=== PATIENT | male | born 1960 | race Caucasian/White ===

== ENCOUNTER 2020-11-14 00:49 | Emergency (ER) | payer OTHER, SELFPAY ==
[2020-11-14] VITALS (23 sets, daily range): BP systolic 111–168; BP diastolic 60–88; PULSE 58–61; RESP 13–24; TEMP 36.6; O2SAT 93–100; BMI 30.4
--- NOTE | 2020-11-14 00:52 | DI.RAD.S_ITS ---
PROCEDURE: XR CHEST 1V INDICATIONS: chest pain TECHNIQUE: One view of the chest was acquired. COMPARISON: None. FINDINGS: Surgical changes and devices: Cardiac pacer. Lungs and pleura: Scattered subsegmental scarring and/or atelectasis. No acute consolidation. No pleural effusions or pneumothorax. Low lung volumes. Mediastinum: Mediastinal contours appear normal. Heart size is normal. Bones and chest wall: No suspicious bony lesions. Overlying soft tissues appear unremarkable. IMPRESSION: No acute disease. Dictated by: Jacob Walton M.D. on 11/14/2020 at 8:49 Approved by: Jacob Walton M.D. on 11/14/2020 at 8:50
[2020-11-14] MEDS: ASPIRIN 81 MG CHEW TAB 324 MG PO (00:59)
[2020-11-14] MEDS: NITROGLYCERIN 0.4 MG SL TAB SL ×3 (01:01→01:29)
--- NOTE | 2020-11-14 01:04 | ED_ITS ---
HPI - General Adult General Chief complaint: Chest Pain Stated complaint: Chest pain Time Seen by Provider: 11/14/20 00:52 Source: patient Mode of arrival: Ambulatory Limitations: no limitations History of Present Illness HPI narrative: Patient is a 59-year-old male. History of hyperlipidemia and hypertension who also has a DDD pacemaker in place secondary to a prior history of Mobitz type 2 in bradycardia here for evaluation of chest discomfort. Patient states that yesterday afternoon he was at his normal state health when he was on a hike and had to stop because he was having left-sided chest pain that was radiating down his arms. He stated that the pain stopped after he rested for short period of time and was able to finish his hike. He spent the rest the day without any discomfort and then this evening when he woke up at approximately midnight he had the same discomfort only slightly worse. He is also having radiation down into his arms and tingling into his hands. Did not go away with rest. Came to the emergency department because of the symptoms. No shortness of breath afebrile. Has not tried anything for symptoms prior to arrival Related Data Allergies Allergy/AdvReac Type Severity Reaction Status Date / Time No Known Drug Allergies Allergy Verified 11/14/20 00:58 Review of Systems Constitutional Constitutional: Denies headache(s) Eyes Eyes: Reports system reviewed and no additional complaints, except as documented ENT Ears, Nose, Mouth, and Throat: Denies headache(s) Cardiovascular Cardiovascular: Reports chest pain and Denies dyspnea Respiratory Respiratory: Reports system reviewed and no additional complaints, except as documented and Denies dyspnea Gastrointestinal Gastrointestinal: Denies nausea and Denies vomiting Genitourinary Genitourinary: Reports system reviewed and no additional complaints, except as documented Musculoskeletal Musculoskeletal: Reports system reviewed and no additional complaints, except as documented Integumentary/Breasts Skin/Breast: Reports system reviewed and no additional complaints, except as documented Neurologic Neurologic: Reports system reviewed and no additional complaints, except as documented and Denies headache(s) Hematologic/Lymphatic On Anticoagulants: No Allergic/Immunologic Allergic/Immunologic: Reports system reviewed and no additional complaints, except as documented Patient History Medical History Mobitz type 2 second degree atrioventricular block Social History Smoking Status: Never smoker Exam Initial Vital Signs Initial Vital Signs: Vital Signs Temperature 97.8 F 11/14/20 00:52 Pulse Rate 58 L 11/14/20 00:52 Respiratory Rate 24 11/14/20 00:52 Blood Pressure 168/80 H 11/14/20 00:52 Pulse Oximetry 100 11/14/20 00:52 Const General: cooperative and ill appearing Limitations: mental status not altered HENMT Head: normal to inspection and normocephalic Eyes General: appearance normal, both eyes and all related structures Chest Chest: No crepitus and No tenderness Resp Effort & Inspection: normal respiratory effort Auscultation: clear to auscultation bilaterally Cardio Rate: regular rate Rhythm: regular rhythm GI Inspection: non-distended Palpation: soft Skin Lesions: no lesions Other: Diaphoretic Neuro General: patient alert, patient awake and patient oriented x3 Cognition: normal cognition Speech: speech normal Extrem General: normal to inspection, capillary refill normal and No edema Psych Appearance: grossly normal and well kempt Course Orders Ordered: ED Orders 11/14/20 00:52 XR chest 1V Stat EKG-12 Lead Stat 11/14/20 01:01 Complete Blood Count AUTO DIFF Stat Comprehensive Metabolic Panel Stat NT-proBNP (BNP-Adult 18+) Stat Troponin & CK Cardiac Panel Stat 11/14/20 01:06 COVID19 -Nasal swab/Pre-Proc Stat Heparin Sodium/Dextrose (Heparin Drip) 25,000 unit in 500 mls @ 20 mls/hr IV CONT LEONARDO; Protocol Metoprolol Tartrate (Metoprolol Tartrate 5 Mg/5 Ml Inj) 5 mg IV Q5M [facility] Stop: 11/14/20 02:11 Last Admin: 11/14/20 01:57 Dose: 5 mg Documented by: Discontinued Medications Aspirin (Aspirin 81 Mg Chew Tab) 324 mg PO NOW ONE Stop: 11/14/20 00:55 Last Admin: 11/14/20 00:59 Dose: 324 mg Documented by: ISIDRO Clopidogrel Bisulfate (Clopidogrel 75 Mg Tablet) 600 mg PO NOW ONE Stop: 11/14/20 01:55 Heparin Sodium (Porcine) (Heparin 5,000 Unit/Ml Vial) 8,000 unit IV NOW ONE Stop: 11/14/20 01:47 Last Admin: 11/14/20 01:56 Dose: 8,000 unit Documented by: Nitroglycerin (Nitroglycerin 0.4 Mg Sl Tab) 0.4 mg SL [id number] PRN PRN Reason: Chest Pain Last Admin: 11/14/20 01:01 Dose: 0.4 mg Documented by: ISIDRO Vital Signs Vital signs: Vital Signs - 8 hr 11/14/20 00:52 11/14/20 00:54 11/14/20 00:55 Temperature 97.8 F Pulse Rate 58 L 59 L 61 Respiratory Rate 24 21 23 Blood Pressure 168/80 H Pulse Oximetry 100 100 100 11/14/20 01:00 11/14/20 01:01 11/14/20 01:02 Temperature Pulse Rate 61 60 60 Respiratory Rate 13 21 Blood Pressure 161/88 H 161/88 H Pulse Oximetry 100 100 11/14/20 01:05 11/14/20 01:10 11/14/20 01:11 Temperature Pulse Rate 60 60 60 Respiratory Rate 21 20 Blood Pressure 155/85 H 152/81 H 152/81 H Pulse Oximetry 100 98 11/14/20 01:15 11/14/20 01:20 11/14/20 01:25 Temperature Pulse Rate 60 60 60 Respiratory Rate 21 17 16 Blood Pressure 138/77 127/71 128/75 Pulse Oximetry 95 94 95 11/14/20 01:29 11/14/20 01:30 Temperature Pulse Rate 60 60 Respiratory Rate 18 Blood Pressure 128/75 131/76 Pulse Oximetry 97 Medical Decision Making Medical Records Medical records reviewed: Yes I reviewed the patient's medical records. Lab Data Lab results reviewed: Yes I reviewed the patient's lab results. Result diagrams: 11/14/20 01:01 11/14/20 01:01 Labs: Lab Results 11/14/20 11/14/20 11/14/20 Range/Units 01:01 01:01 01:06 WBC 9.2 (4.5-11.0) X10^3/uL RBC 5.58 (4.5-5.9) X10^6/uL Hgb 16.7 (13.5-17.5) g/dL Hct 50.2 (41-53) % MCV 89.9 (80-100) fL MCH 30.0 (26-34) PG MCHC 33.3 (30-36) % RDW 13.8 (11.6-14.8) % Plt Count 145 L (150-400) X10^3/uL Neut % (Auto) 46.2 L (50-75) % Lymph % (Auto) 43.9 H (25-40) % Mower % (Auto) 8.2 (3-14) % Eos % (Auto) 0.9 L (2-4) % Baso % (Auto) 0.8 (0-2) % Neut # (Auto) 4200 (6138-1030) /uL Lymph # (Auto) 4000 (9266-0469) /uL Mower # (Auto) 700 (0-900) /uL Eos # (Auto) 100 (0-450) /uL Baso # (Auto) 100 (0-100) /uL Sodium 140 (137-145) mmol/L Potassium 3.6 (3.4-5.1) mmol/L Chloride 105 (98-107) mmol/L Carbon Dioxide 24 (22-32) mmol/L BUN 30 H (9-20) mg/dL Creatinine 1.26 H (0.66-1.25) mg/dL Estimated GFR 58.6 L (>60) mL/min BUN/Creatinine Ratio 23.8 H (6-22) Glucose 131 H (70-100) mg/dL Calcium 10.2 (8.4-10.2) mg/dL Total Bilirubin 1.4 H (0.2-1.3) mg/dL AST 42 (17-59) IU/L ALT 53 H (<50) IU/L Alkaline Phosphatase 77 (38-126) U/L Total Creatine Kinase 180 H (55-170) U/L CK-MB (CK-2) 5.41 H (<2.37) ng/mL CK-MB (CK-2) Rel Index 3.0 (1.5-5.0) % NT-Pro-B Natriuret Pep 371 H (<125) pg/mL Total Protein 7.6 (6.3-8.2) g/dL Albumin 4.5 (3.5-5.0) g/dL Globulin 3.1 (1.7-4.1) g/dL Albumin/Globulin Ratio 1.5 (1.0-2.8) SARS-CoV-2 (PCR) Negative (Negative) Imaging Data Chest x-ray: Radiologist's Impression: No acute findings ECG Data Attestation: I personally reviewed and interpreted this ECG as follows: Interpretation: AV dual paced with prolonged AV conduction Rate is 61 MDM Narrative Medical decision making narrative: Patient arrived ill-appearing. Was diaphoretic. Is having chest pain. Arrives stating that his pain was a 10/10. Approved to is 6 to 7/10 on its own with just resting in bed. Improved to 3/10 with the 1st nitroglycerin and did no change with 2 subsequent doses. His chest x-ray is unremarkable. Patient does not meet Sgarbossa criteria for AMI however changes in V1 and V2 and V3 are concerning. I did discuss the case with Dr. Poe on-call for Cardiology at [facility] was able to review the EKG and agrees that it was concerning. He stated that if we were unable to get his pain under control or if his troponin was positive that I should discuss the case with Dr. Salvador the STEMI commutator assembler. After 3 nitroglycerin patient's pain was still 3/10. His troponin result is 0.299. I did discuss the case with Dr. Salvador and he also was able to review the EKG and was concerned about a coronary occlusion. Patient was started on heparin at 8000 units per his request. Was then started on a heparin drip. He did receive aspirin upon his arrival. Nitro paste was placed secondary to continued discomfort. He was given labetalol. Was given Plavix. Patient was transferred as a STEMI activation. Emergency physician at [facility] accept patient in transfer. I did discuss the need of the transfer with the patient and family at bedside. He expressed understanding. Patient is currently stable for transfer. Critical Care Time Critical Care Time Critical Care Time: Yes Total Critical Care Time: 35 Attestation: The high probability of a clinically significant, sudden or life threatening deterioration of the cardiovascular system(s) required my full and direct attention, intervention and personal management. The aggregate critical care time was [35] minutes. This time is in addition to time spent performing reported procedures but includes the following: [X] Data Review and interpretation [X] Patient assessment and monitoring of vital signs [X] Documentation [X] Medication orders and management Discharge Plan Departure Patient Disposition: [facility] Clinical Impression: ST elevation (STEMI) myocardial infarction
[2020-11-14 01:12] LABS: Add Manual Diff / Slide Review NO; Basophils Absolute Auto 100 /uL (0-100); Basophils Percent Auto 0.8 % (0-2); Eosinophils Absolute Auto 100 /uL (0-450); Eosinophils Percent Auto 0.9 % (2-4); Hematocrit 50.2 % (41-53); Hemoglobin 16.7 g/dL (13.5-17.5); Lymphocytes Absolute Auto 4000 /uL (1100-4500); Lymphocytes Percent Auto 43.9 % (25-40); Mean Corpuscular HGB Conc 33.3 % (30-36); Mean Corpuscular Volume 89.9 fL (80-100); Monocytes Absolute Auto 700 /uL (0-900); Monocytes Percent Auto 8.2 % (3-14); Neutrophils Absolute Auto 4200 /uL (1500-7000); Neutrophils Percent Auto 46.2 % (50-75); Platelet Count 145 X10^3/uL (150-400); Red Blood Cell Count 5.58 X10^6/uL (4.5-5.9); Red Cell Distribution Width 13.8 % (11.6-14.8); White Blood Cell Count 9.2 X10^3/uL (4.5-11.0)
[2020-11-14 01:19] LABS: Alanine Aminotransferase 53 IU/L (<50); Albumin 4.5 g/dL (3.5-5.0); Albumin Globulin Ratio 1.5 (1.0-2.8); Alkaline Phosphatase 77 U/L (38-126); Aspartate Aminotransferase 42 IU/L (17-59); BUN Creatinine Ratio 23.8 (6-22); Bilirubin Total 1.4 mg/dL (0.2-1.3); Blood Urea Nitrogen 30 mg/dL (9-20); Calcium 10.2 mg/dL (8.4-10.2); Carbon Dioxide 24 mmol/L (22-32); Chloride 105 mmol/L (98-107); Creatine Kinase 180 U/L (55-170); Estimated Glomerular Filt Rate 58.6 mL/min (>60); Globulin 3.1 g/dL (1.7-4.1); Glucose 131 mg/dL (70-100); HEMOLYSIS < 15 (0-50); Potassium 3.6 mmol/L (3.4-5.1); Sodium 140 mmol/L (137-145); Total Protein 7.6 g/dL (6.3-8.2)
[2020-11-14 01:25] LABS: COVID19 -Nasal RAPID Negative (Negative)
[2020-11-14 01:31] LABS: NT-proBNP (BNP-Adult 18+) 371 pg/mL (<125)
[2020-11-14 01:34] LABS: Creatine Kinase MB 5.41 ng/mL (<2.37)
[2020-11-14] MEDS: HEPARIN 5,000 UNIT/ML VIAL 8000 UNIT IV (01:56)
[2020-11-14] MEDS: METOPROLOL TARTRATE 5 MG/5 ML INJ IV ×3 (01:57→02:12)
[2020-11-14] MEDS: HEPARIN DRIP 25,000 UNIT/500 ML IV.SOLN 20 UNIT IV (02:06)
[2020-11-14] MEDS: NITROGLYCERIN OINT 1 INCH/GM OINT...G. 0.5 INCH TOP (02:07)
[2020-11-14 02:12] LABS: Troponin I 0.299 ng/mL (0.01-0.034)
--- NOTE | 2020-11-14 02:38 | PC.NURSE ---
Summary of care: Pt presented in moderate distress c/o 8/10 CP. Improved to 6/10 with rest and to 3/10 after 1 SL NTG. Pain was unresponsive to additional 2 SL NTG. Pt later reported pain increasing to 8/10. Dr Hooker notified, he was speaking to [facility] cardiology for transfer. Pt medicated with nitropaste, heparin bolus followed by drip, and metoprolol IV. [facility] arrived for STEMI transport to [facility]. Care handed off to Mahendra.
== END 2020-11-14 02:19 | disposition short-term general hospital (02) ==
PROVIDERS: Emergency Provider Emergency Medicine
DX: I21.3 ST elevation (STEMI) myocardial infarction of unspecified site (principal); R07.9 Chest pain, unspecified; Z20.822 Contact with and (suspected) exposure to COVID-19; Z95.0 Presence of cardiac pacemaker
CPT/HCPCS: 36415; 71045; 80053; 82550; 82553; 83880; 84484; 85025; 87635; 93005; 93010; 96374; 96375; 99284; 99291; 99292; C9803; J1644

== ENCOUNTER 2021-03-02 08:30 | Outpatient (RCR) | payer OTHER, SELFPAY | END 2021-03-02 10:30 | LOC: CAR 08:30 | PROVIDERS: Referring Provider Internal Medicine Clinical Cardiac Electrophysiology; Visit Provider Internal Medicine Clinical Cardiac Electrophysiology | DX: I21.02 ST elevation (STEMI) myocardial infarction involving left anterior descending coronary artery (principal) | CPT/HCPCS: 93798 ==

== ENCOUNTER 2024-03-26 09:28 | Emergency (ER) | payer OTHER, SELFPAY ==
[2024-03-26] VITALS (12 sets, daily range): BP systolic 93–139; BP diastolic 47–74; PULSE 61–82; RESP 12–17; TEMP 36.4; O2SAT 90–98; BMI 28.8
--- NOTE | 2024-03-26 10:02 | DI.CT.S_ITS ---
PROCEDURE: CT KIDNEY URETER BLADDER (KUB) INDICATIONS: R flank pain TECHNIQUE: Axial sections were acquired from the lung bases to the pubic symphysis. Coronal and sagittal reformats were performed. For radiation dose reduction, the following was used: automated exposure control, adjustment of mA and/or kV according to patient size. COMPARISON: [facility], CT, CT IVP, 11/21/2023, 8:56. FINDINGS: Image quality: Diagnostic. Lower Chest: No significant findings. URINARY: Right Kidney: No obstructive stone within the collecting system but there is mild right-sided hydronephrosis. Right Ureter: Within the proximal right ureter just below the pelvis level is a 6 mm maximal dimension 637 Hounsfield unit calculus causing the hydronephrosis immediately above. This calculus had previously been present within the lower 3rd collecting system of right kidney. Left Kidney: No obstructive stones or hydronephrosis. There is a lower 3rd 2 mm nonobstructive left renal collecting system stone, seen on series 2, image 62. Left Ureter: No hydroureter. Bladder: Normal wall thickness. No stones. ABDOMEN: Liver: No contour-deforming solid mass. Gallbladder: No radiopaque gallstones or wall thickening. Biliary ducts: No biliary dilation. Pancreas: No ductal dilation. Spleen: Size is within normal limits. Adrenal Glands: No adrenal nodules. Stomach and Bowel: Normal colonic caliber, without significant wall thickening. Peritoneum: No abnormal intraperitoneal fluid. No free air. Ventral Wall: No hernia. Abdominal Nodes: No enlarged retroperitoneal or mesenteric lymph nodes. Vessels: Aorta and inferior vena cava are normal in size. PELVIS: Pelvic Organs: Unremarkable. Pelvic Nodes: Unremarkable. Miscellaneous: No inguinal hernias are seen. Bones: Unremarkable. IMPRESSION: 6 mm proximal right ureteral stone produces mild to moderate right-sided hydronephrosis, and appears to have migrated from the lower 3rd right renal collecting system subsequent to the 11/24 CT scanning. Resolution of several larger calculi within the left renal collecting system, with a single 2 mm lower 3rd nonobstructive calculus on the left in the collecting system present. Dictated by: Patricio Loco M.D. on 03/26/2024 at 10:45 Approved by: Patricio Loco M.D. on 03/26/2024 at 10:50
[2024-03-26 10:09] LABS: Add Manual Diff / Slide Review NO; Basophils Absolute Auto 0 /uL (0-100); Basophils Percent Auto 0.5 % (0-2); Eosinophils Absolute Auto 0 /uL (0-450); Eosinophils Percent Auto 0.4 % (2-4); Hematocrit 49.5 % (41-53); Hemoglobin 16.5 g/dL (13.5-17.5); Lymphocytes Absolute Auto 2100 /uL (1100-4500); Lymphocytes Percent Auto 19.8 % (25-40); Mean Corpuscular HGB Conc 33.4 % (30-36); Mean Corpuscular Hemoglobin 30.1 PG (26-34); Mean Corpuscular Volume 90.1 fL (80-100); Monocytes Absolute Auto 700 /uL (0-900); Monocytes Percent Auto 6.2 % (3-14); Neutrophils Absolute Auto 7900 /uL (1500-7000); Neutrophils Percent Auto 73.1 % (50-75); Platelet Count 141 X10^3/uL (150-400); Red Blood Cell Count 5.49 X10^6/uL (4.5-5.9); White Blood Cell Count 10.8 X10^3/uL (4.5-11.0)
[2024-03-26] MEDS: HYDROMORPHONE 0.5 MG INJ IV ×4 (10:09→14:28)
[2024-03-26] MEDS: SODIUM CHLORIDE 0.9% 1,000 ML 1000 ML IV (10:09)
[2024-03-26] MEDS: ONDANSETRON 4 MG/2 ML INJ IV (10:09)
[2024-03-26 10:19] LABS: Alanine Aminotransferase 40 IU/L (<50); Albumin 4.3 g/dL (3.5-5.0); Albumin Globulin Ratio 1.3 (1.0-2.8); Alkaline Phosphatase 88 U/L (38-126); Aspartate Aminotransferase 36 IU/L (17-59); BUN Creatinine Ratio 17.8 (6-22); Bilirubin Total 1.9 mg/dL (0.2-1.3); Blood Urea Nitrogen 19 mg/dL (9-20); Carbon Dioxide 25 mmol/L (22-32); Chloride 106 mmol/L (98-107); Estimated Glomerular Filt Rate > 60 mL/min (>60); Globulin 3.2 g/dL (1.7-4.1); Glucose 116 mg/dL (80-110); HEMOLYSIS 30 (0-50); Potassium 3.8 mmol/L (3.4-5.1); Sodium 137 mmol/L (137-145); Total Protein 7.5 g/dL (6.3-8.2)
--- NOTE | 2024-03-26 12:57 | ED.GENADULT ---
HPI - General Adult General Chief complaint: Urogenital-Male Stated complaint: passing kidney stone Time Seen by Provider: 03/26/24 09:58 Source: patient Mode of arrival: Ambulatory History of Present Illness HPI narrative: 63-year-old gentleman with prior history of kidney stones known 6 mm stone in the right kidney. Recently had lithotripsy has been doing well. Approximately 3 hours prior to arrival began having severe pain on the right side suspected that the right kidney stone has entered the ureter. No fevers, cough, chills. He is having difficulty finding a comfortable position, mildly diaphoretic secondary to pain. Upper right flank pains appreciated. No abdominal pain, no recent vomiting, diarrhea. No chest pain or palpitations Related Data Previous Rx's Medication Instructions Recorded oxycodone-acetaminophen 5 mg-325 1 tab PO Q6H PRN pain #20 tabs 03/26/24 mg tablet Allergies Allergy/AdvReac Type Severity Reaction Status Date / Time No Known Drug Allergies Allergy Verified 03/26/24 09:34 Review of Systems Review of Systems Narrative: Pertinent positive and negative findings as per HPI Patient History Medical History (Updated 03/26/24 @ 15:43 by Stacy Chavez MD) Kidney stones Mobitz type 2 second degree atrioventricular block Social History Smoking Status: Never smoker Smoking Status: Never smoker alcohol intake frequency: holidays/special occasions only Substance Use Type: does not use Exam Initial Vital Signs Initial Vital Signs: Vital Signs Temperature 97.6 F 03/26/24 09:29 Pulse Rate 67 03/26/24 09:29 Respiratory Rate 14 03/26/24 09:29 Blood Pressure 139/74 03/26/24 09:29 Pulse Oximetry 97 03/26/24 09:29 Oxygen Delivery Method Room Air 03/26/24 09:29 General: Acutely uncomfortable unable to find position of comfort. Able to give a complete and coherent history. Well-nourished well-developed HEENT: Moist mucous membranes, normal sclera with reactive pupils, Respiratory: Lungs are clear to auscultation, no wheezing no rales no rhonchi. Full and symmetrical air movement Cardiac: Regular rate and rhythm no murmurs no bruits Abdomen: Soft, nontender, good bowel tones, right flank pain Skin: Warm and dry, no rashes Neurologic: Grossly neurologically intact with no obvious asymmetries or abnormalities Extremities: No trauma, well perfused Psych: Cooperative, appropriate insight and affect Course Orders Ordered: ED Orders 03/26/24 09:45 Complete Blood Count AUTO DIFF Stat Comprehensive Metabolic Panel Stat 03/26/24 10:02 CT kidney ureter bladder (KUB) Stat Urinalysis and Microscopic Stat Hydromorphone HCl (Hydromorphone 0.5 Mg Inj) 0.5 mg IV Q15MIN PRN PRN Reason: Pain, Last Admin: 03/26/24 11:30 Dose: 0.5 mg Documented By: Admin: 03/26/24 10:09 Dose: 0.5 mg Documented By: MILVIA Discontinued Medications Sodium Chloride (Normal Saline 0.9%) 1,000 mls @ 1,000 mls/hr IV BOLUS ONE Stop: 03/26/24 11:00 Last Infusion: 03/26/24 11:49 Dose: Infused Documented By: Admin: 03/26/24 10:09 Dose: 1,000 mls/hr Documented By: MILVIA Ondansetron HCl (Ondansetron 4 Mg/2 Ml Inj) 4 mg IV NOW ONE Stop: 03/26/24 10:02 Last Admin: 03/26/24 10:09 Dose: 4 mg Documented By: MILVIA Vital Signs Vital signs: Vital Signs - 8 hr 03/26/24 09:29 03/26/24 12:10 03/26/24 12:10 Temperature 97.6 F Pulse Rate 67 64 Respiratory Rate 14 Blood Pressure 139/74 114/57 L Pulse Oximetry 97 98 Oxygen Delivery Method Room Air 03/26/24 12:30 03/26/24 12:30 Temperature Pulse Rate 61 Respiratory Rate Blood Pressure 112/55 L Pulse Oximetry 96 Oxygen Delivery Method Medical Decision Making Lab Data 03/26/24 09:45 03/26/24 09:45 Labs: Lab Results 03/26/24 Range/Units 09:45 WBC 10.8 (4.5-11.0) X10^3/uL RBC 5.49 (4.5-5.9) X10^6/uL Hgb 16.5 (13.5-17.5) g/dL Hct 49.5 (41-53) % MCV 90.1 (80-100) fL MCH 30.1 (26-34) PG MCHC 33.4 (30-36) % RDW 14.0 (11.6-14.8) % Plt Count 141 L (150-400) X10^3/uL Neut % (Auto) 73.1 (50-75) % Lymph % (Auto) 19.8 L (25-40) % Daniels % (Auto) 6.2 (3-14) % Eos % (Auto) 0.4 L (2-4) % Baso % (Auto) 0.5 (0-2) % Neut # (Auto) 7900 H (1996-4869) /uL Lymph # (Auto) 2100 (9200-4421) /uL Daniels # (Auto) 700 (0-900) /uL Eos # (Auto) 0 (0-450) /uL Baso # (Auto) 0 (0-100) /uL Sodium 137 (137-145) mmol/L Potassium 3.8 (3.4-5.1) mmol/L Chloride 106 (98-107) mmol/L Carbon Dioxide 25 (22-32) mmol/L BUN 19 (9-20) mg/dL Creatinine 1.07 (0.66-1.25) mg/dL Estimated GFR > 60 (>60) mL/min BUN/Creatinine Ratio 17.8 (6-22) Glucose 116 H (80-110) mg/dL Calcium 10.0 (8.4-10.2) mg/dL Total Bilirubin 1.9 H (0.2-1.3) mg/dL AST 36 (17-59) IU/L ALT 40 (<50) IU/L Alkaline Phosphatase 88 (38-126) U/L Total Protein 7.5 (6.3-8.2) g/dL Albumin 4.3 (3.5-5.0) g/dL Globulin 3.2 (1.7-4.1) g/dL Albumin/Globulin Ratio 1.3 (1.0-2.8) Imaging Data CT scan - abdomen/pelvis: Radiologist's Impression: PROCEDURE: CT KIDNEY URETER BLADDER (KUB) INDICATIONS: R flank pain TECHNIQUE: Axial sections were acquired from the lung bases to the pubic symphysis. Coronal and sagittal reformats were performed. For radiation dose reduction, the following was used: automated exposure control, adjustment of mA and/or kV according to patient size. COMPARISON: [facility], CT, CT IVP, 11/21/2023, 8:56. FINDINGS: Image quality: Diagnostic. Lower Chest: No significant findings. URINARY: Right Kidney: No obstructive stone within the collecting system but there is mild right-sided hydronephrosis. Right Ureter: Within the proximal right ureter just below the pelvis level is a 6 mm maximal dimension 637 Hounsfield unit calculus causing the hydronephrosis immediately above. This calculus had previously been present within the lower 3rd collecting system of right kidney. Left Kidney: No obstructive stones or hydronephrosis. There is a lower 3rd 2 mm nonobstructive left renal collecting system stone, seen on series 2, image 62. Left Ureter: No hydroureter. Bladder: Normal wall thickness. No stones. ABDOMEN: Liver: No contour-deforming solid mass. Gallbladder: No radiopaque gallstones or wall thickening. Biliary ducts: No biliary dilation. Pancreas: No ductal dilation. Spleen: Size is within normal limits. Adrenal Glands: No adrenal nodules. Stomach and Bowel: Normal colonic caliber, without significant wall thickening. Peritoneum: No abnormal intraperitoneal fluid. No free air. Ventral Wall: No hernia. Abdominal Nodes: No enlarged retroperitoneal or mesenteric lymph nodes. Vessels: Aorta and inferior vena cava are normal in size. PELVIS: Pelvic Organs: Unremarkable. Pelvic Nodes: Unremarkable. Miscellaneous: No inguinal hernias are seen. Bones: Unremarkable. IMPRESSION: 6 mm proximal right ureteral stone produces mild to moderate right-sided hydronephrosis, and appears to have migrated from the lower 3rd right renal collecting system subsequent to the 11/24 CT scanning. Resolution of several larger calculi within the left renal collecting system, with a single 2 mm lower 3rd nonobstructive calculus on the left in the collecting system present. Dictated by: Patricio Loco M.D. on 03/26/2024 at 10:45 MDM Narrative Medical decision making narrative: CC: Acute onset right flank pain Complicating co-morbidities: Prior kidney stones with lithotripsy. Was aware of a 6 mm stone that was in his right kidney Data collected from: patient Social determinants of health that may influence the patients condition: Patient's urologist is in [place] Differential considered: Patient's urologist is in [place] Exam documented above, pertinent findings include: Right flank pain no abdominal pain pacing the room in significant pain on arrival Lab Test results independently reviewed as above. Pertinent findings: CBC is unremarkable Chemistries are reassuring. Bilirubin is slightly elevated at 1.9 Imaging studies independently reviewed: CT KUB shows 6 mm kidney stone in the proximal right ureter with moderate right-sided hydronephrosis Treatments: 1 L of fluid, Toradol, repeated doses of Dilaudid Re-evaluations: 223pm patient is re-evaluated. Pain is not adequately controlled. He did take his own tamsulosin this morning. He has had Toradol, fluids, total 3 doses of 0.5 mg of Dilaudid. We will try a full mg to see if were able to get on top of the pain Discussion: 63-year-old gentleman with prior kidney stones prior nephrolithiasis established urologist. Currently on tamsulosin known 6 mm stone that have been in the renal parenchyma that appears to now have migrated to the proximal upper 3rd of the right ureter with obstruction and mild hydronephrosis causing significant pain. With Toradol, fluids and Dilaudid we were able to get the pain under control. At this point he is safe for discharge home he has given a prescription for oxycodone along with instructions on moderate pain control with ibuprofen and Tylenol and stronger pain control with ibuprofen and Percocet. Did recommend that he follow up with his primary urologist regarding this current stone in reviewed reasons to return to the emergency department. At this point with pain adequately controlled, no signs of infection appropriate renal function there was no indication for additional imaging or hospitalization and he is safe for discharge Discharge Plan Departure Patient Disposition: Home Clinical Impression: Kidney stone on right side Instructions: DI for Kidney Stones Activity Restrictions/Additional Instructions: Thank you for coming in today The 6 mm kidney stone that has been up in your right kidney is now in the proximal ureter and this is the cause of your pain. Please do continue the tamsulosin. Using 400 mg of ibuprofen (2 osvh-pwh-cokolau pills) and 1 Tylenol every 6 hours can be very helpful in controlling pain. For severe pain 400 mg of ibuprofen and 1 Percocet can be effective The prescription was transmitted to [facility] in [place] Percocet is a narcotic can be addictive and will cause constipation particularly in setting of kidney stone pain. Please take it with a stool softener You do need to follow up with your primary urologist. If you find that the pain is uncontrollable, you are having fevers or new symptoms Prescriptions: New oxycodone-acetaminophen 5-325 mg tablet 1 tab PO Q6H PRN (Reason: pain) Qty: 20 0RF Stand Alone Forms: Patient Portal/API
[2024-03-26 15:55] LABS: Appearance Urine UA SL CLOUDY; Bilirubin Urine UA 1+ (NEGATIVE); Color Urine UA RED; Glucose Urine UA 3+ g/dL (Negative); Ketones Urine UA 1+ (NEGATIVE); Leukocyte Esterase Urine UA TRACE (NEGATIVE); Nitrite Urine UA POSITIVE (Negative); Occult Blood Urine UA 1+ (Negative); Protein Urine UA 2+ (Negative); Specific Gravity Urine UA 1.015 (1.000-1.035)
[2024-03-26 16:10] LABS: Bacteria Urine Many (>30); Culture Indicated Urine Specimen Cultured; RBC Urine 1-5/HPF (0-5/HPF); Squamous Epithelial Cell Urine 0-1 /HPF (0-5/HPF); Urine Volume 10mL (spun); WBC Urine 5-10/HPF (0-5/HPF)
[2024-03-26 16:12] LABS: Ictotest Urine Positive (Negative)
== END 2024-03-26 15:56 | disposition home or self-care (01) ==
PROVIDERS: Emergency Provider Emergency Medicine
DX: N20.0 Calculus of kidney (principal); Z87.442 Personal history of urinary calculi
CPT/HCPCS: 36415; 74176; 80053; 81001; 85025; 87077; 87086; 87186; 96361; 96374; 96375; 96376; 99284; J1171; J2405

== ENCOUNTER → 2024-03-27 16:26 | Outpatient (CLI) | payer OTHER, SELFPAY ==
[2024-03-27 16:54] LABS: Bacteria Urine Many (>30); RBC Urine 1-5/HPF (0-5/HPF); Squamous Epithelial Cell Urine 1-5 /HPF (0-5/HPF); Urine Volume 10mL (spun); WBC Urine 5-10/HPF (0-5/HPF)
[2024-03-27 16:55] LABS: Culture Indicated Urine Specimen Cultured
== END ==
PROVIDERS: Referring Provider Physician Assistant Medical; Visit Provider Physician Assistant Medical
DX: N20.0 Calculus of kidney (principal); R31.9 Hematuria, unspecified
CPT/HCPCS: 81015; 87077; 87086

== ENCOUNTER 2024-03-27 16:37 | Emergency (ER) | payer OTHER, SELFPAY ==
[2024-03-27] VITALS (7 sets, daily range): BP systolic 97–116; BP diastolic 55–58; PULSE 60–70; RESP 14–20; TEMP 37.1–37.7; O2SAT 92–99; BMI 28.8
--- NOTE | 2024-03-27 17:30 | ED_ITS ---
HPI - Male Genitourinary <Coy Edwards MD - Last Filed: 04/07/24 19:02> General Chief complaint: Urogenital-Male Stated complaint: Fever, Just passed Kidney Stone Time Seen by Provider: 03/27/24 17:12 History of Present Illness HPI Narrative: Patient here for fever and chills. Seen here yesterday for right side 6 mm ureteral stone. Patient has history of lithotripsy in the past. Patient feels the kidney stone is stuck and may need lithotripsy. No nausea or vomiting. Just fever and chills. No urinary complaints. No pain at this time. Related Data Home Medications Medication Instructions Recorded Confirmed empagliflozin 25 mg tablet 12.5 mg PO QAM 03/27/24 03/27/24 (Jardiance) metoprolol succinate 25 mg 25 mg PO BID 03/27/24 03/27/24 tablet,extended release 24 hr sacubitril 97 mg-valsartan 103 mg 1 tab PO BID 03/27/24 03/27/24 tablet (Entresto) sildenafil (pulm.hypertension) 20 20 mg PO TID 03/27/24 03/27/24 mg tablet spironolactone 25 mg tablet 12.5 mg PO DAILY 03/27/24 03/27/24 Previous Rx's Medication Instructions Recorded oxycodone-acetaminophen 5 mg-325 1 tab PO Q6H PRN pain #20 tabs 03/26/24 mg tablet Allergies Allergy/AdvReac Type Severity Reaction Status Date / Time No Known Drug Allergies Allergy Verified 03/27/24 16:08 Review of Systems <Coy Edwards MD - Last Filed: 04/07/24 19:02> Review of Systems Narrative: GENERAL: Positive chills, negative fatigue, malaise, positive fever, sweats. HEENT: negative sinus pain, ear pain, sore throat RESPIRATORY: negative dyspnea, cough CARDIOVASCULAR: negative chest pain, palpitations GASTROINTESTINAL: negative nausea, vomiting, abdominal pain : negative dysuria, frequency, hematuria MUSCULOSKELETAL: negative muscle or bony pain SKIN: negative rash, skin lesions NEUROLOGIC: negative weakness, numbness ROS Unobtainable: All systems reviewed & are unremarkable except as noted in HPI and below Patient History <Coy Edwards MD - Last Filed: 04/07/24 19:02> Medical History Kidney stones Mobitz type 2 second degree atrioventricular block Social History Smoking Status: Never smoker Smoking Status: Never smoker alcohol intake frequency: holidays/special occasions only Substance Use Type: does not use Exam <Coy Edwards MD - Last Filed: 04/07/24 19:02> Narrative Exam Narrative: GENERAL: in no distress, not toxic not dyspneic HEAD: Normocephalic. EYES: Pupils equal round ENT: Mucous membranes moist. NECK: Trachea midline. CARDIOVASCULAR: Regular rate and rhythm RESPIRATORY: Clear to auscultation. Breath sounds equal bilaterally. No wheezes, rales, or rhonchi. GASTROINTESTINAL: Abdomen soft, non-tender, no peritoneal signs bowel sounds are present. No CVA tenderness EXTREMITIES: No gross deformities. BACK: No flank tenderness. NEURO: AOx4. Clear speech SKIN: Warm and dry PSYCH: Not anxious, is cooperative Initial Vital Signs Initial Vital Signs: Vital Signs Temperature 99.7 F H 03/27/24 16:41 Pulse Rate 60 03/27/24 16:41 Respiratory Rate 20 03/27/24 16:41 Blood Pressure 116/57 L 03/27/24 16:41 Pulse Oximetry 99 03/27/24 16:41 Oxygen Delivery Method Room Air 03/27/24 16:41 <Hernesto Grossman MD - Last Filed: 03/27/24 20:36> Initial Vital Signs Initial Vital Signs: Vital Signs Temperature 99.7 F H 03/27/24 16:41 Pulse Rate 60 03/27/24 16:41 Respiratory Rate 20 03/27/24 16:41 Blood Pressure 116/57 L 03/27/24 16:41 Pulse Oximetry 99 03/27/24 16:41 Oxygen Delivery Method Room Air 03/27/24 16:41 <Stacy Chavez MD - Last Filed: 03/28/24 07:50> Initial Vital Signs Initial Vital Signs: Vital Signs Temperature 99.7 F H 03/27/24 16:41 Pulse Rate 60 03/27/24 16:41 Respiratory Rate 20 03/27/24 16:41 Blood Pressure 116/57 L 03/27/24 16:41 Pulse Oximetry 99 03/27/24 16:41 Oxygen Delivery Method Room Air 03/27/24 16:41 Course <Coy Edwards MD - Last Filed: 04/07/24 19:02> Orders Ordered: Discontinued Medications Acetaminophen (Acetaminophen 325 Mg Tablet) 975 mg PO NOW ONE Stop: 03/27/24 18:15 Last Admin: 03/27/24 18:24 Dose: 975 mg Documented By: SPF Cefdinir (Cefdinir 300 Mg Capsule) 300 mg PO NOW ONE Stop: 03/27/24 19:55 Last Admin: 03/27/24 20:00 Dose: 300 mg Documented By: LS Vital Signs Vital signs: Vital Signs - 8 hr 03/27/24 16:41 03/27/24 17:57 03/27/24 17:57 Temperature 99.7 F H Pulse Rate 60 61 Respiratory Rate 20 Blood Pressure 116/57 L 107/58 L Pulse Oximetry 99 95 Oxygen Delivery Method Room Air 03/27/24 18:00 03/27/24 18:00 03/27/24 18:24 Temperature 99.8 F H Pulse Rate 64 Respiratory Rate Blood Pressure 102/55 L Pulse Oximetry 92 Oxygen Delivery Method 03/27/24 18:30 03/27/24 18:30 03/27/24 19:00 Temperature Pulse Rate 63 70 Respiratory Rate Blood Pressure 100/57 L Pulse Oximetry 94 94 Oxygen Delivery Method Room Air Room Air 03/27/24 19:00 03/27/24 19:30 03/27/24 19:30 Temperature 98.7 F Pulse Rate 64 Respiratory Rate 14 18 Blood Pressure 107/55 L 97/56 L Pulse Oximetry 94 Oxygen Delivery Method <Hernesto Grossman MD - Last Filed: 03/27/24 20:36> Orders Ordered: Discontinued Medications Acetaminophen (Acetaminophen 325 Mg Tablet) 975 mg PO NOW ONE Stop: 03/27/24 18:15 Last Admin: 03/27/24 18:24 Dose: 975 mg Documented By: SPF Cefdinir (Cefdinir 300 Mg Capsule) 300 mg PO NOW ONE Stop: 03/27/24 19:55 Last Admin: 03/27/24 20:00 Dose: 300 mg Documented By: LS Vital Signs Vital signs: Vital Signs - 8 hr 03/27/24 16:41 03/27/24 17:57 03/27/24 17:57 Temperature 99.7 F H Pulse Rate 60 61 Respiratory Rate 20 Blood Pressure 116/57 L 107/58 L Pulse Oximetry 99 95 Oxygen Delivery Method Room Air 03/27/24 18:00 03/27/24 18:00 03/27/24 18:24 Temperature 99.8 F H Pulse Rate 64 Respiratory Rate Blood Pressure 102/55 L Pulse Oximetry 92 Oxygen Delivery Method 03/27/24 18:30 03/27/24 18:30 03/27/24 19:00 Temperature Pulse Rate 63 70 Respiratory Rate Blood Pressure 100/57 L Pulse Oximetry 94 94 Oxygen Delivery Method Room Air Room Air 03/27/24 19:00 03/27/24 19:30 03/27/24 19:30 Temperature 98.7 F Pulse Rate 64 Respiratory Rate 14 18 Blood Pressure 107/55 L 97/56 L Pulse Oximetry 94 Oxygen Delivery Method <Stacy Chavez MD - Last Filed: 03/28/24 07:50> Orders Ordered: Discontinued Medications Acetaminophen (Acetaminophen 325 Mg Tablet) 975 mg PO NOW ONE Stop: 03/27/24 18:15 Last Admin: 03/27/24 18:24 Dose: 975 mg Documented By: AMBER Cefdinir (Cefdinir 300 Mg Capsule) 300 mg PO NOW ONE Stop: 03/27/24 19:55 Last Admin: 03/27/24 20:00 Dose: 300 mg Documented By: LS Vital Signs Vital signs: Vital Signs - 8 hr 03/27/24 16:41 03/27/24 17:57 03/27/24 17:57 Temperature 99.7 F H Pulse Rate 60 61 Respiratory Rate 20 Blood Pressure 116/57 L 107/58 L Pulse Oximetry 99 95 Oxygen Delivery Method Room Air 03/27/24 18:00 03/27/24 18:00 03/27/24 18:24 Temperature 99.8 F H Pulse Rate 64 Respiratory Rate Blood Pressure 102/55 L Pulse Oximetry 92 Oxygen Delivery Method 03/27/24 18:30 03/27/24 18:30 03/27/24 19:00 Temperature Pulse Rate 63 70 Respiratory Rate Blood Pressure 100/57 L Pulse Oximetry 94 94 Oxygen Delivery Method Room Air Room Air 03/27/24 19:00 03/27/24 19:30 03/27/24 19:30 Temperature 98.7 F Pulse Rate 64 Respiratory Rate 14 18 Blood Pressure 107/55 L 97/56 L Pulse Oximetry 94 Oxygen Delivery Method MDM - Male Genitourinary <Coy Edwards MD - Last Filed: 04/07/24 19:02> Lab Data 03/27/24 17:40 03/27/24 17:40 Labs: Lab Results 03/27/24 Range/Units 17:40 WBC 12.6 H (4.5-11.0) X10^3/uL RBC 4.91 (4.5-5.9) X10^6/uL Hgb 14.6 (13.5-17.5) g/dL Hct 44.2 (41-53) % MCV 89.8 (80-100) fL MCH 29.8 (26-34) PG MCHC 33.1 (30-36) % RDW 14.2 (11.6-14.8) % Plt Count 96 L (150-400) X10^3/uL Neut % (Auto) 84.8 H (50-75) % Lymph % (Auto) 6.4 L (25-40) % Randolph % (Auto) 8.2 (3-14) % Eos % (Auto) 0.2 L (2-4) % Baso % (Auto) 0.4 (0-2) % Neut # (Auto) 85526 H (2040-7221) /uL Lymph # (Auto) 800 L (9269-1209) /uL Randolph # (Auto) 1000 H (0-900) /uL Eos # (Auto) 0 (0-450) /uL Baso # (Auto) 0 (0-100) /uL Sodium 135 L (137-145) mmol/L Potassium 4.1 (3.4-5.1) mmol/L Chloride 104 (98-107) mmol/L Carbon Dioxide 26 (22-32) mmol/L BUN 30 H (9-20) mg/dL Creatinine 1.64 H (0.66-1.25) mg/dL Estimated GFR 47 L (>60) mL/min BUN/Creatinine Ratio 18.3 (6-22) Glucose 119 H (80-110) mg/dL Lactate 1.0 (0.7-2.1) mmol/L Calcium 9.0 (8.4-10.2) mg/dL Total Bilirubin 3.9 H (0.2-1.3) mg/dL AST 28 (17-59) IU/L ALT 34 (<50) IU/L Alkaline Phosphatase 73 (38-126) U/L Total Protein 6.6 (6.3-8.2) g/dL Albumin 3.7 (3.5-5.0) g/dL Globulin 2.9 (1.7-4.1) g/dL Albumin/Globulin Ratio 1.3 (1.0-2.8) Procalcitonin 8.64 H (<0.5) ng/mL [facility] Narrative Medical decision making narrative: Patient here for fever and chills. Seen here yesterday for right side 6 mm ureteral stone. Patient has history of lithotripsy in the past. Patient feels the kidney stone is stuck and may need lithotripsy. No nausea or vomiting. Just fever and chills. No urinary complaints. No pain at this time. After history and exam CBC CMP lactic acid procalcitonin CT abdomen pelvis [facility] Medical records reviewed: Records from yesterday for ER visit Differential considered: Includes but not limited to pyelonephritis infected kidney stone ureteral stone Lab Test results independently reviewed as above. Pertinent findings: Imaging studies independently reviewed: CT abdomen pelvis Consultations: Treatments: Re-evaluations: Discussion: Diagnosis: March 27, 2024 at 6:[address] Edwards: Sign out to Dr. Grossman, laboratory studies imaging studies are pending. May need to consult Urology Services with results. <Hernesto Grossman MD - Last Filed: 03/27/24 20:36> Lab Data Attestation: I reviewed the patient's lab results. Labs: Lab Results 03/27/24 Range/Units 17:40 WBC 12.6 H (4.5-11.0) X10^3/uL RBC 4.91 (4.5-5.9) X10^6/uL Hgb 14.6 (13.5-17.5) g/dL Hct 44.2 (41-53) % MCV 89.8 (80-100) fL MCH 29.8 (26-34) PG MCHC 33.1 (30-36) % RDW 14.2 (11.6-14.8) % Plt Count 96 L (150-400) X10^3/uL Neut % (Auto) 84.8 H (50-75) % Lymph % (Auto) 6.4 L (25-40) % Randolph % (Auto) 8.2 (3-14) % Eos % (Auto) 0.2 L (2-4) % Baso % (Auto) 0.4 (0-2) % Neut # (Auto) 31674 H (5751-9161) /uL Lymph # (Auto) 800 L (0261-4026) /uL Randolph # (Auto) 1000 H (0-900) /uL Eos # (Auto) 0 (0-450) /uL Baso # (Auto) 0 (0-100) /uL Sodium 135 L (137-145) mmol/L Potassium 4.1 (3.4-5.1) mmol/L Chloride 104 (98-107) mmol/L Carbon Dioxide 26 (22-32) mmol/L BUN 30 H (9-20) mg/dL Creatinine 1.64 H (0.66-1.25) mg/dL Estimated GFR 47 L (>60) mL/min BUN/Creatinine Ratio 18.3 (6-22) Glucose 119 H (80-110) mg/dL Lactate 1.0 (0.7-2.1) mmol/L Calcium 9.0 (8.4-10.2) mg/dL Total Bilirubin 3.9 H (0.2-1.3) mg/dL AST 28 (17-59) IU/L ALT 34 (<50) IU/L Alkaline Phosphatase 73 (38-126) U/L Total Protein 6.6 (6.3-8.2) g/dL Albumin 3.7 (3.5-5.0) g/dL Globulin 2.9 (1.7-4.1) g/dL Albumin/Globulin Ratio 1.3 (1.0-2.8) Procalcitonin 8.64 H (<0.5) ng/mL MDM Narrative Medical decision making narrative: Patient here for fever and chills. Seen here yesterday for right side 6 mm ureteral stone. Patient has history of lithotripsy in the past. Patient feels the kidney stone is stuck and may need lithotripsy. No nausea or vomiting. Just fever and chills. No urinary complaints. No pain at this time. After history and exam CBC CMP lactic acid procalcitonin CT abdomen pelvis [facility] Medical records reviewed: Records from yesterday for ER visit Differential considered: Includes but not limited to pyelonephritis infected kidney stone ureteral stone Lab Test results independently reviewed as above. Pertinent findings: Imaging studies independently reviewed: CT abdomen pelvis Consultations: Treatments: Re-evaluations: Discussion: Diagnosis: March 27, 2024 at 6:[address] Edwards: Sign out to Dr. Grossman, laboratory studies imaging studies are pending. May need to consult Urology Services with results. 03/27/2024, 6:00 p.m., Chauncey. Sign-out from Dr. Edwards. Patient seen here yesterday with right-sided flank pain, diagnosed by CT with 6 mm ureteral stone, history of prior lithotripsy followed by [facility] urologist, discharged home, today returns feeling feverish, had increased right flank pain then decreased, no fever on triage vital signs. White blood cell count [id number], other labs pending. Repeat CT abdomen and pelvis pending. Patient thinks he might have passed his recent right ureteral stone. Referred for further evaluation from [facility] urgent care. Assumed interim care. CT abdomen and pelvis now shows previous 6 mm proximal stone now into the renal pelvis, no longer obstructing, there is extensive perinephric stranding involving the right perinephric bed. The right kidney is edematous. There are bilateral nonobstructing kidney stones present. See radiology report. Copy of report given to patient, who believes he had a previous 6 mm right-sided stone within the kidney, believes he might have passed it today. No urinalysis from ED visit now. Urinalysis was sent this afternoon 2h ago from [facility] urgent [facility], showed blood and bacteria, urine culture indicated and is pending. We will give oral dose cefdinir, and prescription for 10 day course to his pharmacy. Follow up with Urology advised, he has urologist in the [facility], also gave contacts for local [facility] urologists since he lives up in the [facility]. Copy of CT report given to patient. DC home with family <Stacy Chavez MD - Last Filed: 03/28/24 07:50> Lab Data Labs: Lab Results 03/27/24 Range/Units 17:40 WBC 12.6 H (4.5-11.0) X10^3/uL RBC 4.91 (4.5-5.9) X10^6/uL Hgb 14.6 (13.5-17.5) g/dL Hct 44.2 (41-53) % MCV 89.8 (80-100) fL MCH 29.8 (26-34) PG MCHC 33.1 (30-36) % RDW 14.2 (11.6-14.8) % Plt Count 96 L (150-400) X10^3/uL Neut % (Auto) 84.8 H (50-75) % Lymph % (Auto) 6.4 L (25-40) % Randolph % (Auto) 8.2 (3-14) % Eos % (Auto) 0.2 L (2-4) % Baso % (Auto) 0.4 (0-2) % Neut # (Auto) 17747 H (9487-5440) /uL Lymph # (Auto) 800 L (7615-6369) /uL Randolph # (Auto) 1000 H (0-900) /uL Eos # (Auto) 0 (0-450) /uL Baso # (Auto) 0 (0-100) /uL Sodium 135 L (137-145) mmol/L Potassium 4.1 (3.4-5.1) mmol/L Chloride 104 (98-107) mmol/L Carbon Dioxide 26 (22-32) mmol/L BUN 30 H (9-20) mg/dL Creatinine 1.64 H (0.66-1.25) mg/dL Estimated GFR 47 L (>60) mL/min BUN/Creatinine Ratio 18.3 (6-22) Glucose 119 H (80-110) mg/dL Lactate 1.0 (0.7-2.1) mmol/L Calcium 9.0 (8.4-10.2) mg/dL Total Bilirubin 3.9 H (0.2-1.3) mg/dL AST 28 (17-59) IU/L ALT 34 (<50) IU/L Alkaline Phosphatase 73 (38-126) U/L Total Protein 6.6 (6.3-8.2) g/dL Albumin 3.7 (3.5-5.0) g/dL Globulin 2.9 (1.7-4.1) g/dL Albumin/Globulin Ratio 1.3 (1.0-2.8) Procalcitonin 8.64 H (<0.5) ng/mL Imaging Data CT scan - abdomen/pelvis: Radiologist's Impression: PROCEDURE: CT KIDNEY URETER BLADDER (KUB) INDICATIONS: Flank pain TECHNIQUE: Axial sections were acquired from the lung bases to the pubic symphysis. Coronal and sagittal reformats were performed. For radiation dose reduction, the following was used: automated exposure control, adjustment of mA and/or kV according to patient size. COMPARISON: [facility], CT, CT KIDNEY URETER BLADDER (KUB), 03/26/2024, 10:07. FINDINGS: Image quality: Diagnostic. Lower Chest: Pacemaker. Minimal patchy bibasilar atelectasis. URINARY: Right Kidney: Extensive perinephric stranding is present. Previous right hydronephrosis is no longer present. The 6 mm stone which was previously at the UPJ/proximal right ureter has moved in a retrograde fashion so that it is floating within the right renal pelvis. Again noted is a punctate nonobstructing lower pole stone. The right kidney is edematous. Right Ureter: No hydroureter. Left Kidney: Multiple nonobstructing small stones again noted. No hydronephrosis. Left Ureter: No hydroureter. Bladder: Normal wall thickness. No stones. ABDOMEN: Liver: No contour-deforming solid mass. Gallbladder: No radiopaque gallstones or wall thickening. Biliary ducts: No biliary dilation. Pancreas: No ductal dilation. Spleen: Size is within normal limits. Adrenal Glands: No adrenal nodules. Stomach and Bowel: Normal colonic caliber, without significant wall thickening. Peritoneum: No abnormal intraperitoneal fluid. No free air. Ventral Wall: No hernia. Abdominal Nodes: No enlarged retroperitoneal or mesenteric lymph nodes. Vessels: Aorta and inferior vena cava are normal in size. PELVIS: Pelvic Organs: Unremarkable. Pelvic Nodes: Unremarkable. Miscellaneous: Bilateral small fat containing inguinal hernias are seen. Bones: A ewlq-ba-denthdej central posterior disc protrusion is incidentally noted at L4-L5. IMPRESSION: 1. The previous obstructing 6 mm proximal right stone has retracted back into the renal pelvis and is no longer obstructing. There is extensive perinephric stranding involving the right perinephric bed. The right kidney is edematous. 2. Bilateral nonobstructing renal stones. 3. Development of mild patchy bibasilar atelectasis. 4. Note made of a central posterior disc protrusion at L4-L5. 5. Pacemaker. Dictated by: Mihir Rainey M.D. on 03/27/2024 at 18:07 [facility] Narrative Medical decision making narrative: Patient here for fever and chills. Seen here yesterday for right side 6 mm ureteral stone. Patient has history of lithotripsy in the past. Patient feels the kidney stone is stuck and may need lithotripsy. No nausea or vomiting. Just fever and chills. No urinary complaints. No pain at this time. After history and exam CBC CMP lactic acid procalcitonin CT abdomen pelvis [facility] Medical records reviewed: Records from yesterday for ER visit Differential considered: Includes but not limited to pyelonephritis infected kidney stone ureteral stone Lab Test results independently reviewed as above. Pertinent findings: Imaging studies independently reviewed: CT abdomen pelvis Treatments: Patient was started on oral cefdinir March 27, 2024 at 6:[address] Edwards: Sign out to Dr. Grossman, laboratory studies imaging studies are pending. May need to consult Urology Services with results. 03/27/2024, 6:00 p.m.Chauncey. Sign-out from Dr. Edwards. Patient seen here yesterday with right-sided flank pain, diagnosed by CT with 6 mm ureteral stone, history of prior lithotripsy followed by [facility] urologist, discharged home, today returns feeling feverish, had increased right flank pain then decreased, no fever on triage vital signs. White blood cell count [id number], other labs pending. Repeat CT abdomen and pelvis pending. Patient thinks he might have passed his recent right ureteral stone. Referred for further evaluation from [facility]. Assumed interim care. CT abdomen and pelvis now shows previous 6 mm proximal stone now into the renal pelvis, no longer obstructing, there is extensive perinephric stranding involving the right perinephric bed. The right kidney is edematous. There are bilateral nonobstructing kidney stones present. See radiology report. Copy of report given to patient, who believes he had a previous 6 mm right-sided stone within the kidney, believes he might have passed it today. No urinalysis from ED visit now. Urinalysis was sent this afternoon 2h ago from [facility], showed blood and bacteria, urine culture indicated and is pending. We will give oral dose cefdinir, and prescription for 10 day course to his pharmacy. Follow up with Urology advised, he has urologist in the [facility] area, also gave contacts for local [facility] urologists since he lives up in the [facility]. Copy of CT report given to patient. [place] home with family 03/[address] Chavez. Urine culture from the returns positive for greater than 100,000 CFU E coli sensitive to cephalosporins. Phone call to the patient. He states that last night he did have chills and a fever. He took a 1000 mg of Tylenol and when he woke up this morning he is feeling significantly better. He is having no flank pain. Temperature this morning is 97.5. Reviewed CT scan showing proximal obstructing stone on the and repeat CT scan on showing the 6 mm stone that appears to have move back up into the renal pelvis and is not currently obstructing. We discussed the fact that a kidney infection with ureteral obstruction is a surgical emergency and needs a stent placed. Based on the CT scan done yesterday it does not appear to be obstructed. The cefdinir that he is on is appropriate based on the culture. The patient is quite interested in being scheduled for lithotripsy to get rid of this larger stone which is entirely appropriate. At this point I recommended that he continue the cefdinir, if he has severe recurrent flank pain, recurrent fevers, chills, nausea, confusion, weakness he needs to come in for further evaluation with concerns for the stone again causing obstruction. Patient understands. He will be contacting our local urologist on Saturday and has contact information from yesterday's ER visit as well as his [facility] in [place] to see who has the earliest follow up appointment to discuss definitive treatment of this 6 mm, now nonobstructing stone in the setting of positive E coli cultures. Questions are answered, we will continue with current treatment and, again he is aware of clinical symptoms that would necessitate urgent return to the emergency department Discharge Plan Departure Patient Disposition: Home Clinical Impression: Bilateral kidney stones, Acute right flank pain Activity Restrictions/Additional Instructions: History of prior kidney stones, prior lithotripsy, recent diagnosis right-sided 6 mm kidney stone, symptoms increased this evening and then improved. No fever on triage. CT scan done tonight, shows no stone within ureter, but does show stones within the right and the left kidney nonobstructing at this time. Radiology report suggests the stone moved cephalad into the kidney, though this clinically seems unlikely, by your report you believe you had a previous right- sided kidney stone 6 mm, and by symptoms might have recently passed it. In either case there is not currently any documented stone within the right ureter. Urinalysis done from clinic this afternoon showed red cells and bacteria, urine culture requested. We will start antibiotics, 1st antibiotic in the emergency department oral cefdinir, prescription sent for 10 day course to your pharmacy. Take antibiotics as prescribed. Follow up with your urologist in [place] early next week regarding possible elective lithotripsy removal of bilateral kidney stones. Return earlier to this/nearest emergency department for any change worsening symptoms or any concerns prior Local urology contact clinic information also provided, if you should like to be managed locally for urology problems in the [facility] Prescriptions: No Action spironolactone 25 mg tablet 12.5 mg PO DAILY sildenafil (pulm.hypertension) 20 mg tablet 20 mg PO TID Rx Instructions: administer doses at least 4-6 hours apart metoprolol succinate 25 mg tablet extended release 24 hr 25 mg PO BID Entresto 97-103 mg tablet 1 tab PO BID Jardiance 25 mg tablet 12.5 mg PO QAM oxycodone-acetaminophen 5-325 mg tablet 1 tab PO Q6H PRN (Reason: pain) Qty: 20 0RF Referrals: Sebas Nash DO [Physician] - Miscellaneous,MD Srinivas [Primary Care Provider] - Coy Gonzales MD [Physician] - Stand Alone Forms: Patient Portal/API
[2024-03-27 17:48] LABS: Add Manual Diff / Slide Review NO; Basophils Absolute Auto 0 /uL (0-100); Basophils Percent Auto 0.4 % (0-2); Eosinophils Absolute Auto 0 /uL (0-450); Eosinophils Percent Auto 0.2 % (2-4); Hematocrit 44.2 % (41-53); Hemoglobin 14.6 g/dL (13.5-17.5); Lymphocytes Absolute Auto 800 /uL (1100-4500); Lymphocytes Percent Auto 6.4 % (25-40); Mean Corpuscular HGB Conc 33.1 % (30-36); Mean Corpuscular Hemoglobin 29.8 PG (26-34); Mean Corpuscular Volume 89.8 fL (80-100); Monocytes Absolute Auto 1000 /uL (0-900); Monocytes Percent Auto 8.2 % (3-14); Neutrophils Absolute Auto 10600 /uL (1500-7000); Neutrophils Percent Auto 84.8 % (50-75); Platelet Count 96 X10^3/uL (150-400); Red Blood Cell Count 4.91 X10^6/uL (4.5-5.9); Red Cell Distribution Width 14.2 % (11.6-14.8); White Blood Cell Count 12.6 X10^3/uL (4.5-11.0)
--- NOTE | 2024-03-27 18:00 | PC.NURSE ---
Addendum entered by Kelvin Lang R.N. 03/27/24 18:36: Pt reports history of e.coli in his urine and had been treated with abx keflex. States he feels the same today. Original Note: Pt denies pain currently. Reports he believes his kidney stone (5mm) may have migrated to his bladder. He today feels feverish. repeat temperature 99.8 oral. Requested tylenol, provider notified and new orders placed.
[2024-03-27 18:05] LABS: Alanine Aminotransferase 34 IU/L (<50); Albumin 3.7 g/dL (3.5-5.0); Albumin Globulin Ratio 1.3 (1.0-2.8); Alkaline Phosphatase 73 U/L (38-126); Aspartate Aminotransferase 28 IU/L (17-59); BUN Creatinine Ratio 18.3 (6-22); Bilirubin Total 3.9 mg/dL (0.2-1.3); Blood Urea Nitrogen 30 mg/dL (9-20); Carbon Dioxide 26 mmol/L (22-32); Chloride 104 mmol/L (98-107); Estimated Glomerular Filt Rate 47 mL/min (>60); Globulin 2.9 g/dL (1.7-4.1); Glucose 119 mg/dL (80-110); HEMOLYSIS 17 (0-50); Potassium 4.1 mmol/L (3.4-5.1); Sodium 135 mmol/L (137-145); Total Protein 6.6 g/dL (6.3-8.2)
[2024-03-27 18:22] LABS: Procalcitonin 8.64 ng/mL (<0.5)
[2024-03-27] MEDS: ACETAMINOPHEN 325 MG TABLET 975 MG PO (18:24)
--- NOTE | 2024-03-27 19:07 | PC.NURSE ---
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 No complaints verbalized at this time. No distress noted. Pt remains connected to vs monitors with alarms on and audible. Call light within reach.
[2024-03-27] MEDS: CEFDINIR 300 MG CAPSULE PO (20:00)
== END 2024-03-27 20:12 | disposition home or self-care (01) ==
PROVIDERS: Emergency Medicine; Emergency Provider Emergency Medicine
DX: N20.0 Calculus of kidney (principal); R10.9 Unspecified abdominal pain; R31.9 Hematuria, unspecified
CPT/HCPCS: 36415; 74176; 80053; 81015; 83605; 84145; 85025; 87077; 87086; 99283; 99284

== ENCOUNTER 2024-05-22 07:45 | Emergency (ER) | payer OTHER, SELFPAY ==
[2024-05-22] VITALS (25 sets, daily range): BP systolic 99–147; BP diastolic 66–90; PULSE 60–73; RESP 13–22; TEMP 36.7–36.9; O2SAT 92–98; BMI 28.5
--- NOTE | 2024-05-22 07:51 | ED_ITS ---
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 He had no associated diaphoresis, heart palpitations, dyspnea, syncope, near-syncope, nausea, vomiting. No radiation of pain to the jaw or neck or scapula or back. No recent new activities. 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 History of coronary artery disease, status post LAD stents x2 [address] [facility]. Follow up by Cardiology Dr. Rendon of [facility], sees that provider at [facility], noted to have atrial fibrillation diagnosis last month, now on Pradaxa oral anticoagulation for the last 3 months, took dose this morning, denies recent missed doses. He can not recall the date of his last stress test, likely more than 2 years. Related Data Home Medications Medication Instructions Recorded Confirmed empagliflozin 25 mg tablet 12.5 mg PO QAM 03/27/24 05/22/24 (Jardiance) metoprolol succinate 25 mg 25 mg PO BID 03/27/24 05/22/24 tablet,extended release 24 hr sacubitril 97 mg-valsartan 103 mg 1 tab PO BID 03/27/24 05/22/24 tablet (Entresto) sildenafil (pulm.hypertension) 20 20 mg PO TID 03/27/24 05/22/24 mg tablet spironolactone 25 mg tablet 12.5 mg PO DAILY 03/27/24 05/22/24 Previous Rx's Medication Instructions Recorded oxycodone-acetaminophen 5 mg-325 1 tab PO Q6H PRN pain #20 tabs 03/26/24 mg tablet isosorbide mononitrate 30 mg 30 mg PO DAILY #30 tabs 05/22/24 tablet,extended release 24 hr Allergies Allergy/AdvReac Type Severity Reaction Status Date / Time No Known Drug Allergies Allergy Verified 03/27/24 16:08 Patient History Medical History Kidney stones Mobitz type 2 second degree atrioventricular block Social History Smoking Status: Never smoker Smoking Status: Never smoker alcohol intake frequency: holidays/special occasions only Exam Narrative Exam Narrative: GENERAL: Well-developed patient, in mild distress. HEAD: Atraumatic. Normocephalic. EYES: Pupils equal round and reactive. Extraocular motions intact. No scleral icterus. No injection or drainage. ENT: Nose without bleeding, purulent drainage. Throat without erythema, tonsillar hypertrophy or exudate. Airway patent. NECK: Trachea midline. Non tender CARDIOVASCULAR: Regular rate and rhythm without murmurs, gallops, or rubs. RESPIRATORY: Clear to auscultation. Breath sounds equal bilaterally. No wheezes, rales, or rhonchi. Left upper anterior pacemaker palpable, site without redness or tenderness. GASTROINTESTINAL: Abdomen soft, non-tender, nondistended. EXTREMITIES: No edema or joint tenderness. BACK: Nontender without deformity or crepitance. No flank tenderness. NEURO: AOx3. Motor functions grossly nonfocal SKIN: No rash or erythema of visible areas Initial Vital Signs Initial Vital Signs: Vital Signs Pulse Rate 73 05/22/24 07:50 Blood Pressure 147/89 H 05/22/24 07:50 Pulse Oximetry 98 05/22/24 07:50 Course Orders Ordered: Discontinued Medications Sodium Chloride (Normal Saline 0.9%) 1,000 mls @ 1,000 mls/hr IV BOLUS ONE Stop: 05/22/24 12:12 Last Infusion: 05/22/24 12:29 Dose: Infused Documented By: Admin: 05/22/24 11:18 Dose: 1,000 mls/hr Documented By: CASSIA Vital Signs Vital signs: Vital Signs - 8 hr 05/22/24 11:30 05/22/24 11:30 05/22/24 12:00 Temperature Pulse Rate 66 Respiratory Rate Blood Pressure 128/72 112/74 Pulse Oximetry 97 Oxygen Delivery Method Room Air 05/22/24 12:00 05/22/24 12:30 05/22/24 12:30 Temperature Pulse Rate 68 65 Respiratory Rate 21 20 Blood Pressure 110/76 Pulse Oximetry 96 96 Oxygen Delivery Method 05/22/24 13:00 05/22/24 13:00 05/22/24 13:30 Temperature Pulse Rate 69 66 Respiratory Rate 20 Blood Pressure 121/76 Pulse Oximetry 96 98 Oxygen Delivery Method 05/22/24 14:00 05/22/24 14:30 05/22/24 14:30 Temperature Pulse Rate 66 66 Respiratory Rate 16 21 Blood Pressure 115/76 Pulse Oximetry 95 96 Oxygen Delivery Method 05/22/24 15:00 05/22/24 15:00 05/22/24 15:30 Temperature Pulse Rate 66 66 Respiratory Rate 21 21 Blood Pressure 123/73 Pulse Oximetry 95 92 Oxygen Delivery Method 05/22/24 15:30 05/22/24 16:00 05/22/24 16:00 Temperature Pulse Rate 60 Respiratory Rate 22 Blood Pressure 115/72 118/70 Pulse Oximetry 95 Oxygen Delivery Method 05/22/24 16:30 05/22/24 16:30 05/22/24 17:00 Temperature Pulse Rate 66 66 Respiratory Rate 19 Blood Pressure 119/76 Pulse Oximetry 96 95 Oxygen Delivery Method 05/22/24 17:00 05/22/24 17:30 05/22/24 17:30 Temperature Pulse Rate 66 Respiratory Rate 20 Blood Pressure 117/69 122/72 Pulse Oximetry 96 Oxygen Delivery Method 05/22/24 17:58 Temperature 98.1 F Pulse Rate Respiratory Rate 19 Blood Pressure Pulse Oximetry Oxygen Delivery Method MDM - Chest Pain Lab Data Attestation: I reviewed the patient's lab results. Lab results narrative: White blood cell count 36612, hemoglobin 16.6, platelets adequate. Basic metabolic panel unremarkable. Total CPK 5536, troponin 0.072 measurable. 05/22/24 07:56 05/22/24 07:56 Labs: Lab Results 05/22/24 05/22/24 05/22/24 Range/Units 07:56 10:00 12:10 WBC 10.1 (4.5-11.0) X10^3/uL RBC 5.59 (4.5-5.9) X10^6/uL Hgb 16.6 (13.5-17.5) g/dL Hct 50.4 (41-53) % MCV 90.0 (80-100) fL MCH 29.6 (26-34) PG MCHC 32.9 (30-36) % RDW 14.6 (11.6-14.8) % Plt Count 108 L (150-400) X10^3/uL Neut % (Auto) 70.5 (50-75) % Lymph % (Auto) 20.8 L (25-40) % [place] % (Auto) 6.7 (3-14) % Eos % (Auto) 1.4 L (2-4) % Baso % (Auto) 0.6 (0-2) % Neut # (Auto) 7100 H (5353-4467) /uL Lymph # (Auto) 2100 (3239-1715) /uL [place] # (Auto) 700 (0-900) /uL Eos # (Auto) 100 (0-450) /uL Baso # (Auto) 100 (0-100) /uL PT 12.7 H (9.4-12.5) SECONDS INR 1.1 (0.9-1.3) APTT 42 H (25.1-36.5) SECONDS Sodium 139 (137-145) mmol/L Potassium 4.1 (3.4-5.1) mmol/L Chloride 106 (98-107) mmol/L Carbon Dioxide 25 (22-32) mmol/L BUN 22 H (9-20) mg/dL Creatinine 1.18 (0.66-1.25) mg/dL Estimated GFR > 60 (>60) mL/min BUN/Creatinine Ratio 18.6 (6-22) Glucose 96 (80-110) mg/dL Calcium 9.9 (8.4-10.2) mg/dL Magnesium 2.1 (1.6-2.3) mg/dL Total Bilirubin 1.8 H (0.2-1.3) mg/dL AST 115 H (17-59) IU/L ALT 65 H (<50) IU/L Alkaline Phosphatase 85 (38-126) U/L Total Creatine Kinase 5536 H 4531 H (55-170) U/L Troponin I 0.072 H 0.079 H 0.091 H (0.01-0.034) ng/mL NT-Pro-B Natriuret Pep 485 H (<125) pg/mL Total Protein 7.7 (6.3-8.2) g/dL Albumin 4.5 (3.5-5.0) g/dL Globulin 3.2 (1.7-4.1) g/dL Albumin/Globulin Ratio 1.4 (1.0-2.8) Lipase 66 (23-300) U/L 05/22/ Range/Units 15:00 WBC (4.5-11.0) X10^3/uL RBC (4.5-5.9) X10^6/uL Hgb (13.5-17.5) g/dL Hct (41-53) % MCV (80-100) fL MCH (26-34) PG MCHC (30-36) % RDW (11.6-14.8) % Plt Count (150-400) X10^3/uL Neut % (Auto) (50-75) % Lymph % (Auto) (25-40) % [place] % (Auto) (3-14) % Eos % (Auto) (2-4) % Baso % (Auto) (0-2) % Neut # (Auto) (9259-4410) /uL Lymph # (Auto) (0371-2397) /uL [place] # (Auto) (0-900) /uL Eos # (Auto) (0-450) /uL Baso # (Auto) (0-100) /uL PT (9.4-12.5) SECONDS INR (0.9-1.3) APTT (25.1-36.5) SECONDS Sodium (137-145) mmol/L Potassium (3.4-5.1) mmol/L Chloride (98-107) mmol/L Carbon Dioxide (22-32) mmol/L BUN (9-20) mg/dL Creatinine (0.66-1.25) mg/dL Estimated GFR (>60) mL/min BUN/Creatinine Ratio (6-22) Glucose (80-110) mg/dL Calcium (8.4-10.2) mg/dL Magnesium (1.6-2.3) mg/dL Total Bilirubin (0.2-1.3) mg/dL AST (17-59) IU/L ALT (<50) IU/L Alkaline Phosphatase (38-126) U/L Total Creatine Kinase (55-170) U/L Troponin I 0.091 H (0.01-0.034) ng/mL NT-Pro-B Natriuret Pep (<125) pg/mL Total Protein (6.3-8.2) g/dL Albumin (3.5-5.0) g/dL Globulin (1.7-4.1) g/dL Albumin/Globulin Ratio (1.0-2.8) Lipase (23-300) U/L Imaging Data Chest x-ray: Radiologist's Impression: [address] [address] XRay Report Signed Patient: Jamal Tompkins MR#: [id number] : 1960 Acct:[id number] Age/Sex: 63 / M Date of Service: 05/22/24 Loc: ED Accession Number: [id number] Procedure: XR chest 1V Ordering Provider: Hernesto Grossman MD PROCEDURE: XR CHEST 1V INDICATIONS: chest pain TECHNIQUE: One view of the chest was acquired. COMPARISON: [facility], , XR CHEST 1V, 11/14/2020, 1:11. FINDINGS: Surgical changes and devices: Pacemaker Lungs and pleura: Lungs are clear. No pleural effusions or pneumothorax. Mediastinum: Mediastinal contours appear normal. Heart size is normal. Bones and chest wall: No suspicious bony lesions. Overlying soft tissues appear unremarkable. IMPRESSION: No acute cardiopulmonary abnormality is seen. Dictated by: Mihir Rainey M.D. on 05/22/2024 at 8:28 Approved by: Mihir Rainey M.D. on 05/22/2024 at 8:28 ECG Data Attestation: I personally reviewed and interpreted this ECG as follows: Interpretation: 0751, AV dual paced rhythm with ventricular rate 67. IA 254, QRS 160, QTC 454. MDM Narrative Medical decision making narrative: 63-year-old male with history of prior heart attack CAD status post 2 vessel stenting, prior pacemaker for second-degree AV block, more recent diagnosis atrial fibrillation on Pradaxa for the last 3 months, having exertional angina, but this morning having chest and arm discomfort at rest, resolved after his own sublingual nitroglycerin x2 doses. Initial EKG shows AV paced rhythm. Initial troponin 0.072 measurable/indeterminate, we will obtain interval troponin. Patient took Pradaxa last dose this morning, no recent missed doses. Anticipate communication with his own project control officer through [facility] Dr. Rendon Interval troponin 0.076 slight increased, will contact Cardiology. 1110, case discussed with cross cover project control officer Dr Flynn, if troponin decreasing then would discharge patient on Isordil 30 mg daily and follow up with their office early next week, if increasing beyond threshold 0.12 non STEMI range then consider heparin and transfer. Patient agrees with this plan 1215, third troponin slight further increase 0.091. Prior CPK 5500 decreased after IV fluids, to 4500 range. 1500, fourth troponin 0.091 same value, still no recurrence of chest pain. Case again discussed with his x-cover project control officer Dr Flynn, can send patient home on Isordil 30mg PO daily, given one month supply, they will contact patient early next week. Rx for Isordil sent to his pharmacy. Follow-up as outpatient for now with cardiology. Return precautions discussed. Discharge Plan Departure Patient Disposition: Home Clinical Impression: Chest pain Activity Restrictions/Additional Instructions: History of coronary artery disease, resolved chest pain earlier today at rest, responded to your own supply of nitroglycerin x2 doses, EKG without obvious ischemic changes today, serial blood tests were not normal but seemed to plateau, no recurrence of chest pain through multiple hours of observation. Phone call consultations done with your cross cover project control officer Dr. Flynn twice, advises discharge on addition of oral long-acting nitrate, isosorbide mononitrate at 30 mg daily. Prescription sent to your pharmacy. Take once daily. Contact your project control officer on Saturday, their service is reportedly aware of your ED visit here. Return earlier to this/nearest emergency department for any change worsening symptoms or any concerns prior Prescriptions: New isosorbide mononitrate 30 mg tablet extended release 24 hr 30 mg PO DAILY Qty: 30 0RF No Action spironolactone 25 mg tablet 12.5 mg PO DAILY sildenafil (pulm.hypertension) 20 mg tablet 20 mg PO TID Rx Instructions: administer doses at least 4-6 hours apart metoprolol succinate 25 mg tablet extended release 24 hr 25 mg PO BID Entresto 97-103 mg tablet 1 tab PO BID Jardiance 25 mg tablet 12.5 mg PO QAM oxycodone-acetaminophen 5-325 mg tablet 1 tab PO Q6H PRN (Reason: pain) Qty: 20 0RF Referrals: Miscellaneous,Doctor, MD [Primary Care Provider] - Stand Alone Forms: Patient Portal/API/Survey
--- NOTE | 2024-05-22 07:51 | EKG_ITS ---
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
--- NOTE | 2024-05-22 07:54 | DI.RAD.S_ITS ---
PROCEDURE: XR CHEST 1V INDICATIONS: chest pain TECHNIQUE: One view of the chest was acquired. COMPARISON: [facility], CR, XR CHEST 1V, 11/14/2020, 1:11. FINDINGS: Surgical changes and devices: Pacemaker Lungs and pleura: Lungs are clear. No pleural effusions or pneumothorax. Mediastinum: Mediastinal contours appear normal. Heart size is normal. Bones and chest wall: No suspicious bony lesions. Overlying soft tissues appear unremarkable. IMPRESSION: No acute cardiopulmonary abnormality is seen. Dictated by: Mihir Rainey M.D. on 05/22/2024 at 8:28 Approved by: Mihir Rainey M.D. on 05/22/2024 at 8:28
--- NOTE | 2024-05-22 08:11 | PC.NURSE ---
CP; worse on anterior left chest. No reproducible pain. Pt states his pain was worse when exercising; however was having pain with just rest as well. No N/V/D or sweating.
[2024-05-22 08:13] LABS: Add Manual Diff / Slide Review NO; Basophils Absolute Auto 100 /uL (0-100); Basophils Percent Auto 0.6 % (0-2); Eosinophils Absolute Auto 100 /uL (0-450); Eosinophils Percent Auto 1.4 % (2-4); Hematocrit 50.4 % (41-53); Hemoglobin 16.6 g/dL (13.5-17.5); Lymphocytes Absolute Auto 2100 /uL (1100-4500); Lymphocytes Percent Auto 20.8 % (25-40); Mean Corpuscular HGB Conc 32.9 % (30-36); Mean Corpuscular Hemoglobin 29.6 PG (26-34); Monocytes Absolute Auto 700 /uL (0-900); Monocytes Percent Auto 6.7 % (3-14); Neutrophils Absolute Auto 7100 /uL (1500-7000); Neutrophils Percent Auto 70.5 % (50-75); Platelet Count 108 X10^3/uL (150-400); Red Blood Cell Count 5.59 X10^6/uL (4.5-5.9); Red Cell Distribution Width 14.6 % (11.6-14.8); White Blood Cell Count 10.1 X10^3/uL (4.5-11.0)
[2024-05-22 08:21] LABS: INR 1.1 (0.9-1.3); Prothrombin Time 12.7 SECONDS (9.4-12.5)
[2024-05-22 08:23] LABS: PTT Partial Thromboplastin Tim 42 SECONDS (25.1-36.5)
[2024-05-22 08:24] LABS: Alanine Aminotransferase 65 IU/L (<50); Albumin 4.5 g/dL (3.5-5.0); Albumin Globulin Ratio 1.4 (1.0-2.8); Alkaline Phosphatase 85 U/L (38-126); Aspartate Aminotransferase 115 IU/L (17-59); BUN Creatinine Ratio 18.6 (6-22); Bilirubin Total 1.8 mg/dL (0.2-1.3); Blood Urea Nitrogen 22 mg/dL (9-20); Calcium 9.9 mg/dL (8.4-10.2); Carbon Dioxide 25 mmol/L (22-32); Chloride 106 mmol/L (98-107); Estimated Glomerular Filt Rate > 60 mL/min (>60); Globulin 3.2 g/dL (1.7-4.1); Glucose 96 mg/dL (80-110); HEMOLYSIS < 15 (0-50); Lipase 66 U/L (23-300); Magnesium 2.1 mg/dL (1.6-2.3); Potassium 4.1 mmol/L (3.4-5.1); Sodium 139 mmol/L (137-145); Total Protein 7.7 g/dL (6.3-8.2)
[2024-05-22 08:36] LABS: NT-proBNP (BNP-Adult 18+) 485 pg/mL (<125); Troponin I 0.072 ng/mL (0.01-0.034)
[2024-05-22 08:39] LABS: Creatine Kinase 5536 U/L (55-170)
--- NOTE | 2024-05-22 08:45 | PC.NURSE ---
0835 called [employer] about patients pacemaker, needs interrogation, PH# [phone]. Device: Payton 8 TRACY [id number] 06/07/2023; spoke with call center receptionist who took down all our information and patients information and stated a device rep will call us back with an ETA
[2024-05-22 10:40] LABS: Troponin I 0.079 ng/mL (0.01-0.034)
[2024-05-22] MEDS: SODIUM CHLORIDE 0.9% 1,000 ML 1000 ML IV (11:18)
[2024-05-22 12:45] LABS: Troponin I 0.091 ng/mL (0.01-0.034)
[2024-05-22 12:52] LABS: Creatine Kinase 4531 U/L (55-170)
[2024-05-22 15:38] LABS: Troponin I 0.091 ng/mL (0.01-0.034)
--- NOTE | 2024-05-22 17:34 | PC.NURSE ---
Reassessed; pt states pain is minimal since having nitro earlier this a.m.
--- NOTE | 2024-05-22 17:34 | PC.NURSE ---
Addendum entered by Margaret Guillory R.N. 05/22/24 17:34: Respirations regular and unlabored. Original Note: Reassess; no change
== END 2024-05-22 18:04 | disposition home or self-care (01) ==
PROVIDERS: Emergency Provider Emergency Medicine
DX: R07.9 Chest pain, unspecified (principal); I25.2 Old myocardial infarction; I25.10 Atherosclerotic heart disease of native coronary artery without angina pectoris; Z95.5 Presence of coronary angioplasty implant and graft; Z95.0 Presence of cardiac pacemaker
CPT/HCPCS: 36415; 71045; 80053; 82550; 83690; 83735; 83880; 84484; 85025; 85610; 85730; 93005; 96360; 99284

== ENCOUNTER 2024-10-21 14:15 | Outpatient (RCR) | payer OTHER, SELFPAY | END 2024-10-21 16:15 | LOC: CAR 14:15 | PROVIDERS: Referring Provider Internal Medicine Clinical Cardiac Electrophysiology; Visit Provider Internal Medicine Clinical Cardiac Electrophysiology | DX: I46.9 Cardiac arrest, cause unspecified (principal) | CPT/HCPCS: 93798 ==